=== PATIENT | female | born 1955 | race Hispanic/Latino ===

== ENCOUNTER 2021-03-13 09:08 | Emergency (ER) | payer MEDICARE ==
[~2021-03-13] VITALS: Ht 149.9 cm; Wt 56.7 kg
[2021-03-13] MEDS ORDERED: KETOROLAC TROMETHAMINE 30 MG/ML VIAL IM STA (09:20)
[2021-03-13] MEDS ORDERED: DEXAMETHASONE 4 MG TAB PO STA (09:20)
[2021-03-13] MEDS ORDERED: ACETAMINOPHEN 325 MG TAB PO ONE (09:30)
[2021-03-13 09:42] LABS: CLARITY,URINE CLEAR (CLEAR); COLOR,URINE YELLOW (YELLOW); KETONES,URINE 1+ (NEGATIVE); LEUKOCYTE ESTERASE ,URINE SMALL (NEGATIVE); NITRITE,URINE POSITIVE (NEGATIVE); PROTEIN,URINE DIPSTICK 2+ (NEGATIVE); URINE UROBILINOGEN 1 mg/dL (0.2 - 1)
[2021-03-13 09:56] LABS: BACTERIA,URINE MANY /HPF; EPITHELIAL CELLS,URINE FEW /LPF; RBC,URINE 0-5 /HPF (0-5); TRANSITIONAL EPI CELLS,URINE RARE; WBC,URINE (MAN) >50 /HPF (0-5)
[2021-03-13] MEDS ORDERED: LIDOCAINE 4% PATCH TP SCH (10:00)
[2021-03-13] MEDS ORDERED: CEPHALEXIN500 MG PO (10:00)
== END 2021-03-13 10:06 | disposition home or self-care (01) ==
LOC: ER 09:41
DX: M54.5 Low back pain (principal); N12 Tubulo-interstitial nephritis, not specified as acute or chronic; Z96.652 Presence of left artificial knee joint
CPT/HCPCS: 81001; 87086; 99283; J1885; J8540; 87186